=== PATIENT | female | born 1975 | race African-American/Black ===

== ENCOUNTER 2025-03-30 00:12 | Emergency (ER) | payer MEDICARE, MEDICAID, SELFPAY ==
[2025-03-30 00:31] VITALS: BP 93/55; PULSE 111; RESP 18; TEMP 36.9; O2SAT 96; BMI 26.9
--- NOTE | 2025-03-30 01:18 | ED.GENADULT ---
HPI - General Adult General Chief complaint: Fever Stated complaint: throat is swollen Time Seen by Provider: 03/30/25 01:13 Source: patient Mode of arrival: ambulatory Limitations: no limitations History of Present Illness ED Provider: Edinson CARRASCO HPI narrative: The patient is a 49-year-old female presenting to the ED for re-evaluation of sore throat with fever. Patient reports since Wednesday she has been experiencing a fever with a sore throat, body aches, headache and mild dizziness. Patient reports she was seen at urgent care and was told she may have diptheria, patient was treated with cephalexin which she has been taking since Wednesday with no improvement in symptoms. The patient denies any recent travel outside the [place], reports she is up-to-date on vaccinations. Patient denies associated vomiting, diarrhea, abdominal pain, chest pain, cough, shortness of breath. Patient reports she has been taking ibuprofen for pain with moderate effect, last dose at 20:00. Related Data Previous Rx's ?Medication ?Instructions ?Recorded amoxicillin 500 mg capsule 500 mg PO BID 10 days #20 caps 03/30/25 Allergies Allergy/AdvReac Type Severity Reaction Status Date / Time acetaminophen (From FIORICET) Allergy Unknown SHORTNESS Verified 03/30/25 00:54 OF BREATH butalbital (From FIORICET) Allergy Unknown SHORTNESS Verified 03/30/25 00:54 OF BREATH caffeine (From FIORICET) Allergy Unknown SHORTNESS Verified 03/30/25 00:54 OF BREATH clarithromycin (From Biaxin) Allergy Unknown HIVES, SOB Verified 03/30/25 00:54 morphine (MORPHINE) Allergy Unknown HIVES, SOB Verified 03/30/25 00:54 PMFSH Social History Social History Advance Directives: No Do you have a plan to hurt others: No Plan Physical Exam ED Vital Signs: Vital Signs - 24 hr 03/30/25 00:31 03/30/25 02:50 Temperature 98.4 F 98.0 F Pulse Rate 111 H 97 Respiratory Rate 18 16 Blood Pressure 93/55 L 101/64 Pulse Oximetry 96 98 Oxygen Delivery Method Room Air Room Air BMI result Body Mass Index 26.9 CONSTITUTIONAL: The patient appears non-toxic, well nourished and in no acute distress. Vital signs as documented. HEAD: Atraumatic, normocephalic. EYES: EOMs grossly intact, pupils equal, conjunctiva clear, no exudate. ENT: Nares patent, no discharge. Airway patent, no audible stridor, posterior pharynx shows large exudate of the bilateral tonsils with bilateral tonsillar swelling, no peritonsillar swelling, uvula is midline and nonedematous. Other visible mucosa is pink and moist without noted lesions. NECK: Trachea is midline, no obvious masses or gross abnormalities. CHEST: Symmetric movement, normal appearance. LUNGS: LS present and CTAB, no w/r/r. Non-labored work of breathing. CARDIAC: Regular Rhythm, S1/S2 appreciated, no murmurs, rubs or gallops. ABDOMEN: Abdomen soft and non-tender x4 quadrants, no palpable masses or organomegaly. : Deferred. EXTREMITIES: Normal tone, moves all extremities spontaneously without reported pain. No obvious acute injury or deformity noted. NEURO: Alert and oriented x3, CN II-XII appear grossly intact. Cerebellar Functioning grossly intact. No obvious sensory or motor deficits. Speech clear and appropriate. PSYCH: normal affect, appropriate eye contact, fluid speech, with appropriate response to questioning. No reported suicidality or homicidality. SKIN: Warm, dry, color appropriate, normal turgor. No rashes noted. Medications Administered Discontinued Medications Generic Name Dose Route Start Last Admin Trade Name Freq PRN Reason Stop Dose Admin Acetaminophen 975 mg 03/30/25 02:47 03/30/25 03:45 Acetaminophen 325 Mg Tablet PO 03/30/25 02:48 975 mg ONCE ONE Administration Amoxicillin 500 mg 03/30/25 02:47 03/30/25 03:45 Amoxicillin 500 Mg Capsule PO 03/30/25 02:48 500 mg ONCE ONE Administration Ibuprofen 600 mg 03/30/25 02:47 03/30/25 03:45 Ibuprofen 600 Mg Tablet PO 03/30/25 02:48 600 mg ONCE ONE Administration Lidocaine HCl 15 ml 03/30/25 02:47 03/30/25 03:45 Lidocaine Hcl Viscous 2 % 15 Ml Solution PO 03/30/25 02:48 15 ml ONCE ONE Administration Medical Decision Making Medical Decision Making MDM Narrative: 3:08 AM 03/30/2025: Patient is a 49-year-old female presenting to the ED for evaluation of sore throat which has not improved despite use of cephalexin prescribed by a local urgent care for concern of diphtheria. The patient arrives to the ED afebrile, with some tachycardia and mild hypotension. Patient however is nontoxic appearing, exam is consistent with strep throat, no concern for peritonsillar abscess. Patient's tachycardia is likely secondary to pain, there is no concern for sepsis. Patient's labs are positive for strep throat, negative for influenza, COVID, or RSV. The patient's strep throat will be treated with amoxicillin. Patient will be treated with viscous lidocaine, Tylenol, and ibuprofen for pain. We will reassess heart rate and plan to discharge with continued amoxicillin and outpatient follow-up. 3:48 AM 03/30/2025: On repeat assessment the patient's heart rate and blood pressure have improved. Patient will be discharged to follow up with PCP. Admission/Observation Consideration of admission/observation: Escalation of care including admission/observation considered Lab Data MDM Lab Attestation statement: I reviewed the patient's lab results. 03/30/25 01:13 03/30/25 01:13 Labs: Lab Results 03/30/25 Range/Units 01:13 WBC 16.5 H (4.8-10.8) X10*3/uL RBC 4.53 (4.20-5.50) X10*6/uL Hgb 13.0 (12.0-16.0) g/dl Hct 38.2 (37.0-47.0) % MCV 84.3 (80.0-98.0) fL MCH 28.7 (27.0-33.0) pg MCHC 34.0 (31.0-35.0) g/dl RDW 13.2 (11.0-16.0) % Plt Count 236 (160-400) X10*3/uL MPV 11.0 (9.4-12.3) fL Immature Gran % (Auto) 0.5 H (0.0-0.4) % Neut % (Auto) 74.3 H (45-73) % Lymph % (Auto) 14.8 L (20-40) % [place] % (Auto) 8.1 (2-11) % Eos % (Auto) 1.8 (0-4) % Baso % (Auto) 0.5 (0-2) % Lymph # (Auto) 2.4 (1.2-4.9) X10*3/uL [place] # (Auto) 1.3 H (0.1-1.2) X10*3/uL Eos # (Auto) 0.3 (0.0-0.4) X10*3/uL Baso # (Auto) 0.1 (0.0-0.2) X10*3/uL Abs Immat Gran (auto) 0.08 H (0.00-0.03) X10*3/uL Absolute Neuts (auto) 12.3 H (2.0-8.3) x10*3/uL Absolute Nucleated RBC 0.000 (0.0-0.012) X10*3/uL Nucleated RBC % (auto) 0.0 (0.0-0.2) /100WBC Sodium 138 (135-145) mmol/L Potassium 3.7 (3.3-5.1) mmol/L Chloride 102 (96-108) mmol/L Carbon Dioxide 24 (22-29) mmol/L Anion Gap 16 (12-20) BUN 18 H (9-16) mg/dL Creatinine 0.93 (0.5-1.4) mg/dL Estim Creat Clear Calc 67.3 Estimated GFR > 60 Random Glucose 127 H (60-115) mg/dL Calcium 11.1 H (8.4-10.2) mg/dL Total Bilirubin 0.3 (0.0-1.0) mg/dL AST 34 H (5-31) U/L ALT 41 H (0-31) U/L Alkaline Phosphatase 169 H (39-117) U/L Total Protein 7.6 (6.5-8.0) g/dL Albumin 4.4 (3.5-5.0) g/dL Influenza Type A (PCR) NEGATIVE (Negative) Influenza Type B (PCR) NEGATIVE (Negative) RSV RNA Qual (PCR) NEGATIVE (Negative) SARS-CoV-2 RNA (RT-PCR) NEGATIVE (Negative) S. pyogenes GrpA MARIAJOSE Positive A (Negative) Prescription Management I considered prescription management with: Pain Medication and Antibiotic Discharge Plan Discharge Clinical Impression: Acute infective pharyngitis due to Streptococcus species Patient Disposition: Home, Self-Care Instructions: Pharyngitis (ED), Strep Throat (ED) Additional Instructions: Thank you for choosing [facility] Emergency Department for your care today. Your laboratory workup today showed that you are positive for acute bacterial pharyngitis from Streptococcus, more commonly known as strep throat. Your testing was negative for influenza, RSV, and COVID. Your laboratory evaluation, exam, and vital signs today are reassuring and there is no indicationof an acute process requiring admission to the hospital or continued ED observation, and it is safe to discharge you home. Is very important that you take amoxicillin twice daily as prescribed until it is finished. You may take alternating (staggered) doses of ibuprofen 600mg and Tylenol 1000mg every 4 hours as needed for any additional pain. Please stay well hydrated and get plenty of rest. Please follow up with your primary care physician for re-evaluation, additional management of your symptoms, and continued preventative care. If you do not have a primary care physician, please call the [facility] at [phone] to establish a new primary care physician. While waiting to establish your new primary care physician, you can call our [facility] at [phone] for non-emergency needs. Please return to the emergency department if you develop a severe or sudden change in your symptoms, a fever over 100.4 that does not improve with Tylenol or Ibuprofen, recurrent vomiting, or any other new or worsening symptoms or concerns. Prescriptions: New amoxicillin 500 mg capsule 500 mg PO BID 10 Days Qty: 20 0RF Referrals: Betsy Tavares MD [Primary Care Provider, Internal Medicine] Clinical Impression: Acute infective pharyngitis due to Streptococcus species Print Language: Macedonian
[2025-03-30 01:19] LABS: Basophils Absolute Auto 0.1 X10*3/uL (0.0-0.2); Basophils Percent Auto 0.5 % (0-2); Eosinophils Absolute Auto 0.3 X10*3/uL (0.0-0.4); Eosinophils Percent Auto 1.8 % (0-4); Hematocrit 38.2 % (37.0-47.0); Imm Gran Abs Auto 0.08 X10*3/uL (0.00-0.03); Imm Gran Pct Auto 0.5 % (0.0-0.4); Lymphocytes Absolute Auto 2.4 X10*3/uL (1.2-4.9); Lymphocytes Percent Auto 14.8 % (20-40); MANUAL DIFF FLAG NO; Mean Corpuscular Hemoglobin 28.7 pg (27.0-33.0); Mean Corpuscular Volume 84.3 fL (80.0-98.0); Monocytes Absolute Auto 1.3 X10*3/uL (0.1-1.2); Monocytes Percent Auto 8.1 % (2-11); Neutrophils Absolute Auto 12.3 x10*3/uL (2.0-8.3); Neutrophils Percent Auto 74.3 % (45-73); Platelet Count 236 X10*3/uL (160-400); Red Blood Count 4.53 X10*6/uL (4.20-5.50); Red Cell Distribution Width 13.2 % (11.0-16.0); White Blood Count 16.5 X10*3/uL (4.8-10.8)
[2025-03-30 01:28] LABS: IDNOW Serial# 6674DD1D; Strep A Nucleic Acid Positive (Negative)
[2025-03-30 01:52] LABS: Anion Gap 16 (12-20); Chloride 102 mmol/L (96-108); Potassium 3.7 mmol/L (3.3-5.1); Sodium 138 mmol/L (135-145)
[2025-03-30 01:53] LABS: Alanine Aminotransferase 41 U/L (0-31); Albumin Level 4.4 g/dL (3.5-5.0); Alkaline Phosphatase 169 U/L (39-117); Aspartate Amino Transferase 34 U/L (5-31); Bilirubin Total 0.3 mg/dL (0.0-1.0); Blood Urea Nitrogen 18 mg/dL (9-16); Calcium 11.1 mg/dL (8.4-10.2); Carbon Dioxide 24 mmol/L (22-29); Creatinine Clr Calc Pharmacy 67.3; Estimated Glomerular Filt Rate > 60; Glucose Random 127 mg/dL (60-115); Total Protein 7.6 g/dL (6.5-8.0)
[2025-03-30 01:57] LABS: Influenza A PCR NEGATIVE (Negative); Influenza B PCR NEGATIVE (Negative); Resp Syncy Virus RNA Qual PCR NEGATIVE (Negative); SARS COV2 PCR INHOUSE NEGATIVE (Negative)
[2025-03-30 02:50] VITALS: BP 101/64; PULSE 97; RESP 16; TEMP 36.7; O2SAT 98
[2025-03-30] MEDS: Ibuprofen 600 MG TABLET PO (03:45)
[2025-03-30] MEDS: Amoxicillin 500 MG CAPSULE PO (03:45)
[2025-03-30] MEDS: Acetaminophen 325 MG TABLET 975 MG PO (03:45)
[2025-03-30] MEDS: Lidocaine HCl Viscous 2 % 15 ML SOLUTION PO (03:45)
[2025-03-30 03:56] VITALS: BP 101/64; PULSE 97; RESP 16; TEMP 36.7; O2SAT 98
== END 2025-03-30 03:57 | disposition home or self-care (01) ==
PROVIDERS: Nurse Practitioner Family; Emergency Provider Emergency Medicine; PCP Internal Medicine
DX: J02.0 Streptococcal pharyngitis (principal); Z03.818 Encounter for observation for suspected exposure to other biological agents ruled out
CPT/HCPCS: 0241U; 80053; 85025; 87651; 99283